=== PATIENT | female | born 1960 | race Caucasian/White ===

== ENCOUNTER → 2024-03-11 11:18 | Outpatient (BNVA) | payer MEDICARE, SELFPAY | PROVIDERS: Family Provider Nurse Practitioner Family; PCP Nurse Practitioner Family; Visit Provider Nurse Practitioner | DX: R39.9 Unspecified symptoms and signs involving the genitourinary system (principal) | CPT/HCPCS: 81000 ==

== ENCOUNTER → 2024-06-18 07:46 | Outpatient (BNVA) | payer MEDICARE, MEDICAID, SELFPAY | PROVIDERS: Family Provider Nurse Practitioner Family; PCP Nurse Practitioner Family; Visit Provider Nurse Practitioner Family | DX: N39.0 Urinary tract infection, site not specified (principal) | CPT/HCPCS: 81000; 87086 ==

== ENCOUNTER → 2024-08-22 11:31 | Outpatient (BNVA) | payer MEDICARE, MEDICAID, SELFPAY | PROVIDERS: Family Provider Nurse Practitioner Family; PCP Nurse Practitioner Family; Visit Provider Nurse Practitioner Family | DX: N39.0 Urinary tract infection, site not specified (principal); R39.9 Unspecified symptoms and signs involving the genitourinary system | CPT/HCPCS: 81000; 87086 ==

== ENCOUNTER → 2024-08-29 11:45 | Outpatient (BNVA) | payer MEDICARE, MEDICAID, SELFPAY | PROVIDERS: Family Provider Nurse Practitioner Family; PCP Nurse Practitioner Family; Visit Provider Nurse Practitioner Family | DX: N39.0 Urinary tract infection, site not specified (principal) | CPT/HCPCS: 87086 ==

== ENCOUNTER → 2024-12-12 10:11 | Outpatient (BNVA) | payer MEDICARE, MEDICAID, SELFPAY | PROVIDERS: Family Provider Nurse Practitioner Family; PCP Nurse Practitioner Family; Visit Provider Nurse Practitioner Family | DX: N39.0 Urinary tract infection, site not specified (principal); Z98.84 Bariatric surgery status; D64.9 Anemia, unspecified | CPT/HCPCS: 82607; 82728; 82746; 83550; 84466; 85025; 87086 ==

== ENCOUNTER 2025-01-20 15:20 | Oncology outpatient (recurring) (ONCR) | payer MEDICARE, MEDICAID, SELFPAY ==
[2025-01-20 16:48] LABS: Basophils % 0.6 %; Eosinophils # 0.1 10^3/uL (0.0-0.8); Hematocrit 39.9 % (36-47); Lymphocytes # 2.5 10^3/uL (0.8-4.8); Lymphocytes % 37.1 %; Mean Corpuscular HGB Conc 30.6 g/dL (30-55); Mean Corpuscular Hemoglobin 30.3 pg (27-33); Mean Corpuscular Volume 99.3 fl (85-98); Mean Platelet Volume 9.1 fL (7.4-10.4); Monocytes # 0.5 10^3/uL (0.2-0.9); Neutrophils # 3.63 10^3/uL (1.8-7.7); Neutrophils % 53.2 %; Nucleated Red Blood Cells % 0 %; Platelet Count 352 10^3/cmm (157-399); Red Blood Count 4.02 10^6/uL (3.85-5.65); Red Cell Distribution Width 13.8 % (12.1-15.1); White Blood Count 6.84 10^3/uL (3.29-11.43)
[2025-01-20 16:49] LABS: Reticulocyte % 1.8 % (0.5-2.0)
[2025-01-20 17:14] LABS: Alanine Aminotransferase 14 U/L (0-33); Alkaline Phosphatase 67 U/L (35-105); Aspartate Amino Transferase 12 U/L (0-32); Blood Urea Nitrogen 43 mg/dL (8-23); Calcium 9.9 mg/dL (8.5-10.5); Carbon Dioxide 23 mmol/L (22-29); Chloride 106 mmol/L (98-107); Creatinine Clr Calc Pharmacy 19.5626; Ferritin 225 ng/mL (15-150); Glomerular Filtration Rate 15.1 mL/min (90-130); Glucose 97 mg/dL (65-115); Homocysteine 18.07 umol/l (0-15); Lactate Dehydrogenase 94 U/L (135-214); Osmolality Calculated 301 mOsm/kg (285-295); Sodium 140 mmol/L (136-145); Total Bilirubin 0.3 mg/dL (0.15-1.2)
[2025-01-20 17:28] LABS: Vitamin B12 731 pg/mL (232-1245)
[2025-01-20 18:24] LABS: Folate Level > 20.0 ng/mL (4.8-37.3)
[2025-01-25 01:50] LABS: Methylmalonic Acid 262 nmol/L (69-390)
== END 2025-02-05 23:59 | disposition home or self-care (01) ==
LOC: ONCMED 15:22
PROVIDERS: Family Provider Nurse Practitioner Family; PCP Nurse Practitioner Family; Visit Provider Internal Medicine
DX: D50.9 Iron deficiency anemia, unspecified (principal); D64.9 Anemia, unspecified; R79.0 Abnormal level of blood mineral; I10 Essential (primary) hypertension; Z98.84 Bariatric surgery status; Z90.49 Acquired absence of other specified parts of digestive tract; Z79.899 Other long term (current) drug therapy
CPT/HCPCS: 36415; 80053; 82607; 82728; 82746; 83010; 83090; 83615; 83921; 85025; 85045; 99204

== ENCOUNTER 2025-02-12 11:15 | Oncology outpatient (recurring) (ONCR) | payer MEDICARE, MEDICAID, SELFPAY | END 2025-03-08 23:59 | disposition home or self-care (01) | PROVIDERS: Family Provider Nurse Practitioner Family; PCP Nurse Practitioner Family; Visit Provider Internal Medicine | DX: D50.9 Iron deficiency anemia, unspecified (principal); N39.0 Urinary tract infection, site not specified; R79.0 Abnormal level of blood mineral; Z98.84 Bariatric surgery status; Z90.49 Acquired absence of other specified parts of digestive tract; Z90.710 Acquired absence of both cervix and uterus; Z96.653 Presence of artificial knee joint, bilateral; Z79.899 Other long term (current) drug therapy | CPT/HCPCS: 81000; 87077; 87086; 87184; 99213 ==

== ENCOUNTER 2025-02-19 12:41 | Outpatient (CLI) | payer MEDICARE, MEDICAID, SELFPAY ==
--- NOTE | 2025-02-19 13:30 | US_ITS ---
WS: [id number] URINARY BLADDER ULTRASOUND HISTORY: N39.0 - Urinary tract infection, site not specified COMPARISON: None available. Urinary bladder is minimally distended. Bladder was not distended prior to this examination. No intraluminal filling defect. No free fluid adjacent to the urinary bladder. Bladder Prevoid: 3.6 cm x 3.7 cm x 1.9 cm. Prevoid volume: 13.1 ml. Bladder Postvoid: No post void residual. US/US bladder [id number] IMPRESSION: 1. Urinary bladder was not distended for the examination. 2. No post void residual.
== END 2025-02-19 12:42 | disposition home or self-care (01) ==
PROVIDERS: Family Provider Nurse Practitioner Family; PCP Nurse Practitioner Family; Visit Provider Nurse Practitioner Family
DX: N30.00 Acute cystitis without hematuria (principal)
CPT/HCPCS: 76857; 81000; 87086

== ENCOUNTER → 2025-02-27 08:26 | Outpatient (BNVA) | payer MEDICARE, MEDICAID, SELFPAY | PROVIDERS: PCP Nurse Practitioner Family; Visit Provider Nurse Practitioner Family | DX: N28.9 Disorder of kidney and ureter, unspecified (principal); N30.00 Acute cystitis without hematuria | CPT/HCPCS: 80053; 87086 ==

== ENCOUNTER 2025-03-13 04:33 | Emergency (ER) | payer MEDICARE, MEDICAID, SELFPAY ==
[2025-03-13] VITALS (24 sets, daily range): BP systolic 90–142; BP diastolic 56–74; PULSE 67–94; RESP 14–21; TEMP 36.8; O2SAT 86–100; BMI 29.2
--- NOTE | 2025-03-13 04:49 | XRR_ITS ---
PROCEDURE INFORMATION: Exam: XR Chest Exam date and time: 03/13/2025 4:55 AM Age: 64 years old Clinical indication: Other: AMS; Additional info: Confusion TECHNIQUE: Imaging protocol: Radiologic exam of the chest. Views: 1 view. COMPARISON: No relevant prior studies available. FINDINGS: Lungs: Unremarkable. No consolidation. Pleural spaces: Unremarkable. No pleural effusion. No pneumothorax. Heart/Mediastinum: Unremarkable. No cardiomegaly. Bones/joints: Unremarkable. XR/XR chest 1V portable [id number] IMPRESSION: No acute findings.
--- NOTE | 2025-03-13 04:49 | CTR_ITS ---
PROCEDURE INFORMATION: Exam: CT Head Without Contrast Exam date and time: 03/13/2025 5:10 AM Age: 64 years old Clinical indication: Altered mental status/memory loss; Additional info: Confusion, hallucinating TECHNIQUE: Imaging protocol: Computed tomography of the head without contrast. Radiation optimization: All CT scans at this facility use at least one of these dose optimization techniques: automated exposure control; mA and/or kV adjustment per patient size (includes targeted exams where dose is matched to clinical indication); or iterative reconstruction. COMPARISON: No relevant prior studies available. RADIATION DOSE METRICS: Total DLP (mGy-cm): 981.7 FINDINGS: Brain: Normal. No hemorrhage. Unremarkable white matter. No mass effect. Cerebral ventricles: No ventriculomegaly. Paranasal sinuses: Visualized sinuses are unremarkable. No fluid levels. Mastoid air cells: Visualized mastoid air cells are well aerated. Bones: Unremarkable. No acute fracture. Soft tissues: Unremarkable. CT/CT head wo con* [id number] IMPRESSION: No acute intracranial abnormality.
--- NOTE | 2025-03-13 04:50 | CTR_ITS ---
PROCEDURE INFORMATION: Exam: CT Abdomen And Pelvis Without Contrast Exam date and time: 03/13/2025 5:13 AM Age: 64 years old Clinical indication: Abdominal pain; Flank; Other: Bilat; Additional info: Flank pain, HX of stones and pyelo TECHNIQUE: Imaging protocol: Computed tomography of the abdomen and pelvis without contrast. Radiation optimization: All CT scans at this facility use at least one of these dose optimization techniques: automated exposure control; mA and/or kV adjustment per patient size (includes targeted exams where dose is matched to clinical indication); or iterative reconstruction. COMPARISON: US bladder [id number] 02/19/2025 1:19 PM RADIATION DOSE METRICS: Total DLP (mGy-cm): 473.39 FINDINGS: Liver: Normal. No mass. Gallbladder and biliary ducts: Cholecystectomy. Moderate intra and extrahepatic biliary distension. Pancreas: Normal. No ductal dilation. Spleen: Normal. No splenomegaly. Adrenal glands: Normal. No mass. Kidneys and ureters: Atrophic kidneys. Mildly obstructing 10 mm right UPJ calculus. Additional nonobstructing renal calculi on either side. Bilateral renal cysts. Stomach and bowel: There is a large amount of colonic fecal material suggesting constipation. Prior gastric and additional bowel surgery. Appendix: No evidence of appendicitis. Intraperitoneal space: Unremarkable. No free air. No significant fluid collection. Vasculature: Unremarkable. No abdominal aortic aneurysm. Lymph nodes: Unremarkable. No enlarged lymph nodes. Urinary bladder: Unremarkable as visualized. Reproductive: Hysterectomy. Bones/joints: Unremarkable. No acute fracture. Soft tissues: Unremarkable. CT/CT kidney stone [id number] IMPRESSION: 1. Dilated biliary system including a [address] [place] effect versus obstructive changes. 2. Mildly obstructing right UPJ calculus. 3. Likely constipation. COMMENTS: Consistent with the [employer]'s Incidental Findings Committee white paper (J Am Gaby Radiol 2018): Any incidental renal lesion less than 1 cm or classified as too small to characterize, or any incidental cystic renal lesion characterized as simple-appearing, is likely benign. No follow-up imaging is recommended for these lesions per consensus recommendations based on imaging criteria.
--- NOTE | 2025-03-13 04:58 | ECG_ITS ---
[facility] Test Date: 2025-03-13 Pat Name: Silvia Smiley Department: Room: Gender: Female Staffing Consultant: : [id number] Requested By: Major Pillai Order Number: [id number] Reading MD: MEHUL TREJO Measurements Intervals [place] Rate: 88 P: 24 ID: [id number] QRS: -12 QRSD: 87 T: 18 QT: 365 QTc: 443 Interpretive Statements SINUS RHYTHM INFERIOR MYOCARDIAL INFARCTION , PROBABLY OLD [40+ ms Q WAVE AND/OR ST/T ABNORMALITY IN II/aVF] ANTEROSEPTAL MYOCARDIAL INFARCTION , OF INDETERMINATE AGE [40+ ms Q WAVE IN V1-V4] No previous ECG available for comparison Electronically Signed On 03-15-2025 23:47:34 CDT by MEHUL TREJO [email or web address]
[2025-03-13 05:09] LABS: Basophils % 0.3 %; Eosinophils # 0.1 10^3/uL (0.0-0.8); Eosinophils % 0.8 %; Hematocrit 39.4 % (36-47); Lymphocytes # 1.2 10^3/uL (0.8-4.8); Lymphocytes % 13.9 %; Mean Corpuscular HGB Conc 29.9 g/dL (30-55); Mean Corpuscular Hemoglobin 31.2 pg (27-33); Mean Corpuscular Volume 104.2 fl (85-98); Mean Platelet Volume 9.4 fL (7.4-10.4); Monocytes # 0.4 10^3/uL (0.2-0.9); Neutrophils # 7.01 10^3/uL (1.8-7.7); Neutrophils % 80.7 %; Nucleated Red Blood Cells % 0 %; Platelet Count 313 10^3/cmm (157-399); Red Blood Count 3.78 10^6/uL (3.85-5.65)
[2025-03-13] MEDS: sodium chloride 0.9% 1,000 ML 999 ML IV ×2 (05:21→11:20)
[2025-03-13 05:27] LABS: Lactic Sepsis W/Reflex 1.9 mmol/L (0.5-2.2)
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
[2025-03-13 05:36] LABS: Alanine Aminotransferase 30 U/L (0-33); Albumin Level 4.2 g/dL (3.5-5.2); Alkaline Phosphatase 64 U/L (35-105); Aspartate Amino Transferase 15 U/L (0-32); Blood Urea Nitrogen 51 mg/dL (8-23); Calcium 9.4 mg/dL (8.5-10.5); Carbon Dioxide 22 mmol/L (22-29); Chloride 104 mmol/L (98-107); Creatinine Clr Calc Pharmacy 17.6469; Globulin 3.1 g/dL (1.3-4.6); Glucose 87 mg/dL (65-115); Osmolality Calculated 303 mOsm/kg (285-295); Sodium 140 mmol/L (136-145); Thyroid Stimulating Hormone 3.07 uIU/mL (0.27-4.20); Total Bilirubin 0.3 mg/dL (0.15-1.2); Total Protein 7.3 g/dL (6.6-8.7)
[2025-03-13 05:37] LABS: Alcohol Level < 10 mg/dL (0-10); Anion Gap 18.5 (5-19); Potassium 4.5 mmol/L (3.5-5.1)
[2025-03-13 05:44] LABS: Bilirubin Urine Negative (Negative); Blood Urine Trace (Negative); Glucose Urine UA Negative (Normal); Ketones Urine Negative (Negative); Leukocyte Esterase Urine 3+ (Negative); Nitrate Urine Positive (Negative); Protein Urine 2+ (Negative); Specific Gravity, Urine 1.018 (1.005-1.030); Urine Appearance Turbid (CLEAR); Urine Color Yellow (Yellow); pH Urine 5.5 (5-7)
[2025-03-13 05:49] LABS: Add Urine Microscopic? YES; Bacteria Urine 4+ /hpf; Hyaline Casts Urine 2.05 /lpf; RBC Urine 0-2 /hpf (0-2); Squamous Epithelial Cell Urine 0-5 /hpf (0-5); WBC Urine >100 /hpf (0-5)
[2025-03-13 05:50] LABS: Amphetamines Screen Urine Negative (Negative); Barbiturates Screen Urine Negative (Negative); Benzodiazepines Screen Urine Negative (Negative); Cocaine Screen Urine Negative (Negative); Opiate Screen Urine Positive (Negative); PCP Screen Urine Negative (Negative); THC Screen Urine Negative (Negative)
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
[2025-03-13 06:14] LABS: UA Slide Review UA Slide Review Perf
[2025-03-13] MEDS: cefTRIAXone 1,000 mg SDV 1000 MG IVP (07:02)
--- NOTE | 2025-03-13 09:18 | PC.NURSE ---
Addendum entered by Nicolasa Piper 03/13/25 09:28: [facility] 0928 does not have urology coverage Addendum entered by Nicolasa Piper 03/13/25 09:24: [place] 0922 does not have urology coverage Original Note: Lesli @ 0915 - Urology declined recommend tertiary care due to complexity with gastric bypass hx Ashlee @ 0917 - no beds available - currently on ED divert. try again after d/c if needed ETA 1200.
== END 2025-03-13 19:54 | disposition short-term general hospital (02) ==
PROVIDERS: Student in an Organized Health Care Education/Training Program; Emergency Provider Family Medicine; PCP Nurse Practitioner Family
DX: R41.82 Altered mental status, unspecified (principal); N20.1 Calculus of ureter; N39.0 Urinary tract infection, site not specified; I10 Essential (primary) hypertension
CPT/HCPCS: 36415; 70450; 71045; 74176; 80053; 80306; 80307; 81001; 83605; 84443; 85025; 87040; 87077; 87086; 87186; 93005; 96361; 96374; 99285; J0696; J7030

== ENCOUNTER → 2025-03-31 14:34 | Outpatient (BNVA) | payer MEDICARE, MEDICAID, SELFPAY | PROVIDERS: PCP Nurse Practitioner Family; Visit Provider Nurse Practitioner Family | DX: N30.00 Acute cystitis without hematuria (principal) | CPT/HCPCS: 81000; 87086 ==

== ENCOUNTER → 2025-06-03 11:49 | Outpatient (BNVA) | payer MEDICARE, MEDICAID, SELFPAY | PROVIDERS: PCP Nurse Practitioner Family; Visit Provider Nurse Practitioner Family | DX: N39.0 Urinary tract infection, site not specified (principal) | CPT/HCPCS: 81000; 87077; 87086; 87184 ==

== ENCOUNTER → 2025-07-07 09:28 | Outpatient (BNVA) | payer MEDICARE, MEDICAID, SELFPAY | PROVIDERS: PCP Nurse Practitioner Family; Visit Provider Nurse Practitioner Family | DX: N39.0 Urinary tract infection, site not specified (principal) | CPT/HCPCS: 87086 ==

== ENCOUNTER → 2025-09-08 10:06 | Outpatient (BNVA) | payer MEDICARE, MEDICAID, SELFPAY | PROVIDERS: PCP Nurse Practitioner Family; Visit Provider Nurse Practitioner Family | DX: E55.9 Vitamin D deficiency, unspecified (principal) | CPT/HCPCS: 82652 ==

== ENCOUNTER 2025-09-17 10:29 | Outpatient (CLI) | payer MEDICARE, MEDICAID, SELFPAY ==
--- NOTE | 2025-09-17 10:35 | US_ITS ---
WS: [id number] ULTRASOUND SOFT TISSUES RIGHT lower extremity. HISTORY: R22.41 - Localized swelling, mass and lump, right lower limb COMPARISON: None available. TECHNIQUE: 2-D and color Doppler imaging is submitted. Palpable area along the anterior RIGHT lower extremity is imaged. There is a mass with peripheral calcification and posterior shadowing corresponding to the palpable abnormality. Calcified mass measures 0.8 x 0.6 x 1.7 cm and does appear to abut the cortex of the tibia. No fluid. US/US soft tissue/extremity [id number] IMPRESSION: Calcified mass corresponds to the palpable abnormality over the anterior RIGHT lower extremity. This may be malignant or benign etiology. Recommend radiograph of the RIGHT lower extremity.
== END 2025-09-17 10:30 | disposition home or self-care (01) ==
LOC: RAD 10:32
PROVIDERS: PCP Nurse Practitioner Family; Visit Provider Nurse Practitioner Family
DX: R22.41 Localized swelling, mass and lump, right lower limb (principal)
CPT/HCPCS: 76882